=== PATIENT | male | born 1960 | race Caucasian/White ===

== ENCOUNTER 2021-05-03 19:54 | Emergency (ER) | payer SELFPAY ==
[~2021-05-03] VITALS: Ht 177.8 cm; Wt 72.0 kg
[2021-05-03] MEDS ORDERED: KETOROLAC 30MG/ML VIAL IV STA (22:39)
[2021-05-03] MEDS ORDERED: SODIUM CHLORIDE 0.9% 1,000 ML IV ONE (22:45)
[2021-05-03] MEDS ORDERED: SODIUM CHLORIDE 0.9% 500 ML IV ONE (23:15)
[2021-05-03 23:39] LABS: BASOPHILS % 0.3 % (0.0-2.0); EOSINOPHILS % 0.8 % (0.0-5.0); HEMATOCRIT. 46.2 % (42.0-52.0); HEMOGLOBIN. 15.9 g/dL (14.0-18.0); LYMPHOCYTES % 16.7 % (20.0-50.0); MEAN CORPUSCULAR VOLUME 101.8 fL (80.0-94.0); MEAN PLATELET VOLUME 7.4 fl (7.4-10.4); MONOCYTES % 8.2 % (2.0-8.0); PLATELET 282 x1000/uL (130-400); RED BLOOD CELL COUNT 4.54 mill/uL (4.7-6.1); RED CELL DISTRIBUTION WIDTH 13.5 % (11.6-14.6)
[2021-05-03 23:47] LABS: CHLORIDE 112 mEq/L (98-107)
[2021-05-03 23:52] LABS: ETHANOL BLOOD 157 mg/dL
[2021-05-04] MEDS ORDERED: PHEN51CR24 TP (00:50)
[2021-05-04] MEDS ORDERED: NAPR-679 MT (00:50)
[2021-05-04] MEDS ORDERED: DOCU-138 MT (00:50)
[2021-05-04 02:03] LABS: CLARITY URINE CLOUDY (CLEAR); COLOR URINE ORANGE (YELLOW); KETONES URINE NEGATIVE (NEGATIVE); LEUKOCYTE ESTERASE URINE 3+ (NEGATIVE); NITRITE URINE NEGATIVE (NEGATIVE); OCCULT BLOOD URINE 3+ (NEGATIVE); PH URINE 5.5 (4.5-8.0); PROTEIN URINE 3+ (NEGATIVE); SPECIFIC GRAVITY URINE 1.013 (1.005-1.030); UROBILINOGEN URINE 0.2 E.U./dL (0.2-1.0)
[2021-05-04 02:17] LABS: OPIATES URINE SCREEN NEGATIVE (NEGATIVE)
[2021-05-04 02:19] LABS: *AMPHETAMINES SCREEN URINE PRESUMTIVE POSITIVE (NEGATIVE); *BARBITURATES SCREEN URINE NEGATIVE (NEGATIVE); *BENZODIAZEPINES SCREEN URINE PRESUMTIVE POSITIVE (NEGATIVE); *COCAINE SCREEN URINE NEGATIVE (NEGATIVE)
[2021-05-04 02:20] LABS: CANNABINOID URINE SCREEN PRESUMTIVE POSITIVE (NEGATIVE); METHADONE URINE SCREEN NEGATIVE (NEGATIVE); PHENCYCLIDINE URINE SCREEN NEGATIVE (NEGATIVE)
[2021-05-04] MEDS ORDERED: CIPR-263 MT (02:54)
[2021-05-04 05:00] VITALS: BP 134/78
== END 2021-05-04 05:40 | disposition home or self-care (01) ==
LOC: ER 19:54
DX: R45.1 Restlessness and agitation (principal); K62.5 Hemorrhage of anus and rectum; N39.0 Urinary tract infection, site not specified; K64.4 Residual hemorrhoidal skin tags; F19.10 Other psychoactive substance abuse, uncomplicated; F10.129 Alcohol abuse with intoxication, unspecified; Y90.6 Blood alcohol level of 120-199 mg/100 ml; Z79.899 Other long term (current) drug therapy
CPT/HCPCS: 36415; 80053; 80305; 80307; 80320; 80329; 81003; 85025; 96361; 96374; 99285; J1885; J7030; G0480